=== PATIENT | female | born 1985 | race African-American/Black ===

== ENCOUNTER 2016-10-23 10:01 | Emergency (ER) | payer SELFPAY ==
--- NOTE | 2016-10-23 10:14 | ER Document Report ---
ED Medical Screen (RME) - General Stated Complaint: ABDOMINAL PAIN Notes: 31 yo female c/o nausea, pelvic and abdominal pain since June. hx/o ovarian cysts and fibroid. no fever, no vaginal discharge or pain. no n/v abdomen soft, mild suprapubic tenderness. TRAVEL OUTSIDE OF THE [place] IN LAST 30 DAYS: No - Related Data Allergies/Adverse Reactions: No Known Allergies Allergy (Verified 10/23/16 10:09) Past Medical History Renal/ Medical History: Reports: Hx Ovarian Cysts Malignancy Medical History: Reports: Hx Cervical Cancer Past Surgical History: Reports: Hx Section - Immunizations Immunizations up to date: Yes Hx Diphtheria, Pertussis, Tetanus Vaccination: No
[2016-10-23 10:34] LABS: ABSOLUTE EOSINOPHILS # (AUTO) 0.1 10^3/uL (0.0-0.6); ABSOLUTE LYMPHOCYTES (AUTO) 2.2 10^3/uL (0.5-4.7); ABSOLUTE MONOCYTES (AUTO) 0.3 10^3/uL (0.1-1.4); ABSOLUTE NEUT (AUTO) 6.6 10^3/uL (1.7-8.2); BASOPHILS % (AUTO) 0.4 % (0-2); HEMATOCRIT 36.7 % (36.0-47.0); HGB HCT DIFFERENCE -0.7; LYMPHOCYTES % (AUTO) 23.6 % (13-45); MEAN CORPUSCULAR HEMOGLOBIN 27.8 pg (27.0-33.4); MEAN CORPUSCULAR HGB CONC 32.7 g/dL (32.0-36.0); MEAN CORPUSCULAR VOLUME 85 fl (80-97); MONOCYTES % (AUTO) 3.4 % (3-13); RED BLOOD COUNT 4.31 10^6/uL (3.72-5.28); RED CELL DISTRIBUTION WIDTH 14.3 % (11.5-14.0); SEGMENTED NEUTROPHILS % (AUTO) 71.6 % (42-78); WHITE BLOOD COUNT 9.2 10^3/uL (4.0-10.5)
[2016-10-23 10:37] LABS: APPEARANCE,URINE SLIGHTLY-CLOUDY; BILIRUBIN,URINE NEGATIVE (NEGATIVE); GLUCOSE, URINE NEGATIVE (NEGATIVE); KETONES,URINE NEGATIVE (NEGATIVE); LEUKOCYTE ESTERASE,URINE SMALL (NEGATIVE); NITRITE,URINE NEGATIVE (NEGATIVE); PROTEIN,URINE NEGATIVE (NEGATIVE); URINE SPECIFIC GRAVITY 1.009; UROBILINOGEN,URINE NEGATIVE mg/dL (<2.0)
[2016-10-23 10:57] LABS: BLOOD UREA NITROGEN 5 mg/dL (7-20); CALCIUM 9.3 mg/dL (8.4-10.2); CREATININE RESULT 0.81 mg/dL (0.52-1.25); GLUCOSE 114 mg/dL (75-110)
[2016-10-23 10:58] LABS: ALANINE AMINOTRANSFERASE 53 U/L (9-52); ALBUMIN 3.8 g/dL (3.5-5.0); ALKALINE PHOSPHATASE 90 U/L (38-126); ANION GAP 10 (5-19); ASPARTATE AMINO TRANSFERASE 37 U/L (14-36); BILIRUBIN,TOTAL 0.5 mg/dL (0.2-1.3); CARBON DIOXIDE 25 mmol/L (22-30); CHLORIDE 105 mmol/L (98-107); POTASSIUM 4.2 mmol/L (3.6-5.0); SODIUM 140.3 mmol/L (137-145); TOTAL PROTEIN 7.1 g/dL (6.3-8.2)
--- NOTE | 2016-10-23 10:58 | ER Document Report ---
ED GI/ - General Mode of Arrival: Ambulatory Information source: Patient TRAVEL OUTSIDE OF THE [place] IN LAST 30 DAYS: No - HPI Patient complains to provider of: Other - Bilateral ovarian pain Onset: Other - June 2016 Location: Pelvis Associated symptoms: Other - see above <DICK JAVIER - Last Filed: 10/23/16 21:23> <CHAMP FAYE - Last Filed: 11/08/16 04:35> - General Chief Complaint: Abdominal Pain Stated Complaint: ABDOMINAL PAIN Notes: 31 year old female with history of anemia and ovarian cysts presents to the ED complaining of constant pressure to her pelvis and fatigue that started in June 2016. Patient states that the pressure is coming from her ovaries and that she often experiences pain that radiates back and forth between each ovary. Patient is additionally complaining of a loss of appetite and loss of taste since July 2016. Patient reports that she has been gagging when eating. Patient last saw a physician at [facility] and was diagnosed with a fibroid. Patient seeks health care at [facility] (DICK JAVIER) - Related Data Allergies/Adverse Reactions: No Known Allergies Allergy (Verified 10/23/16 10:09) Past Medical History - General Information source: Patient - Social History Smoking Status: Current Some Day Smoker Chew tobacco use (# tins/day): No Frequency of alcohol use: None Drug Abuse: None Family History: Reviewed & Not Pertinent Patient has suicidal ideation: No Patient has homicidal ideation: No - Past Medical History Cardiac Medical History: Reports: Other - anemia Renal/ Medical History: Reports: Hx Ovarian Cysts. Denies: Hx Peritoneal Dialysis Malignancy Medical History: Reports: Hx Cervical Cancer Past Surgical History: Reports: Hx Section - Immunizations Immunizations up to date: Yes Hx Diphtheria, Pertussis, Tetanus Vaccination: No <DICK JAVIER - Last Filed: 10/23/16 21:23> Review of Systems - Review of Systems Constitutional: See HPI, Weakness EENT: No symptoms reported Cardiovascular: No symptoms reported Respiratory: No symptoms reported Gastrointestinal: See HPI, Poor appetite Genitourinary: No symptoms reported Female Genitourinary: See HPI, Other - pelvic "ovarian" pain Musculoskeletal: No symptoms reported Skin: No symptoms reported Hematologic/Lymphatic: No symptoms reported Neurological/Psychological: See HPI, Sensory change - loss of taste -: Yes All other systems reviewed and negative <DICK JAVIER - Last Filed: 10/23/16 21:23> Physical Exam - General General appearance: Appears well In distress: None - HEENT Head: Normocephalic, Atraumatic Eyes: Normal Extraocular movements intact: Yes Pupils: PERRL - Respiratory Respiratory status: No respiratory distress Breath sounds: Normal - Cardiovascular Rhythm: Regular Heart sounds: Normal auscultation - Abdominal Inspection: Normal Distension: No distension Tenderness: Nontender - Back Back: Normal - Extremities General upper extremity: Normal inspection, Normal ROM General lower extremity: Normal inspection, Normal ROM - Neurological Neuro grossly intact: Yes Cognition: Normal Orientation: AAOx4 Shahnaz Coma Scale Eye Opening: Spontaneous Shahnaz Coma Scale Verbal: Oriented [place] Coma Scale Motor: Obeys Commands [place] Coma Scale Total: 15 Speech: Normal - Psychological Associated symptoms: Normal affect, Normal mood - Skin Skin Temperature: Warm Skin Moisture: Dry Skin Color: Normal <JAVIERDICK - Last Filed: 10/23/16 21:23> Course - Laboratory Result Diagrams: 10/23/16 10:20 10/23/16 10:20 <DICK JAVIER - Last Filed: 10/23/16 21:23> - Laboratory Result Diagrams: 10/23/16 10:20 10/23/16 10:20 <CHAMP FAYE - Last Filed: 11/08/16 04:35> - Re-evaluation Re-evalutation: 10/23/16 12:44 I personally performed the services described in the documentation, reviewed and edited the documentation which was dictated to my scribe in my presence, and it accurately records my words and actions. Patient presents emergency per with a multitude of symptoms been going on for several months. She thinks she should've seen her [employer] physician but didn't says she intermittently gets lower abdominal pain take food doesn't taste right she has a history of anemia and she's basically wanted to get checked out to make sure there wasn't anything abnormal with her labs. She is in no acute distress right now not complaining of any pain or discomfort on examination well -appearing nontoxic stable vitals negative HEENT normal lungs heart and abdomen examinations no acute tenderness guarding rebound rigidity or concerns for injury abdominal pathology. Labs are stable nonacute. She does have a small leukocyte Estrace and do a culture on that told her to call her back that was positive otherwise she is given follow-up with her primary care physician in 2- 3 days OB for further assessment and evaluation Pap she denies any vaginal discharge or history gonorrhea chlamydia and discussed reasons Luisa return sooner (CHAMP FAYE) - Vital Signs Vital signs: Temp Pulse Resp BP Pulse Ox 98.2 F 63 16 140/82 H 100 10/23/16 10:10 10/23/16 12:52 10/23/16 12:52 10/23/16 12:52 10/23/16 12:52 - Laboratory Laboratory results interpreted by me: 10/23/16 10/23/16 10/23/16 10:17 10:20 10:20 RDW 14.3 H BUN 5 L Glucose 114 H AST 37 H ALT 53 H Ur Leukocyte Esterase SMALL H Discharge <DICK JAVIER - Last Filed: 10/23/16 21:23> <CHAMP FAYE - Last Filed: 11/08/16 04:35> - Discharge Clinical Impression: Lower abdominal pain, Decrease in appetite Condition: Stable Disposition: HOME, SELF-CARE Additional Instructions: Abdominal Pain, decreased appetite food doesnt taste right There are many causes of abdominal pain. Pain can mean a serious problem requiring surgery (such as appendicitis). It can also be an innocent problem that goes away on its own (such as a viral infection). Often, time must pass to determine the cause of pain. The physician does not feel that hospitalization is necessary, at present. Things may change within the next 24 hours. Call the doctor or come back for re- examination if any problems occur, such as: (1) Pain that becomes more severe, steady, or becomes concentrated in one specific area. Also, pain that is more severe with movement or coughing. (2) Vomiting that persists or becomes more frequent. (3) Blood in the vomitus, urine, or bowel movements. Blood in the stool may have a tarry or black appearance. (4) Shaking chills or fever greater than 100 degrees F. (5) The abdomen becomes more distended or swollen. (6) Bowel movements cease. (7) Failure to improve as expected. Forms: Return to Work Referrals: [facility] [Provider Group] - Follow up as needed (Call for appointment to be seen in follow-up 2-3 days return for increasing worsening or new symptoms) Scribe Documentation - Scribe Written by Scribe:: Karl Calvert, 10/23/2016 1356 acting as scribe for :: Juan F <DICK JAVIER - Last Filed: 10/23/16 21:23>
[2016-10-23 12:59] VITALS: BP 140/82
== END 2016-10-23 12:59 | disposition home or self-care (01) ==
LOC: ER 10:01
DX: N94.89 Other specified conditions associated with female genital organs and menstrual cycle (principal); R63.0 Anorexia; R53.83 Other fatigue; R53.1 Weakness; R43.8 Other disturbances of smell and taste; F17.200 Nicotine dependence, unspecified, uncomplicated; Z87.42 Personal history of other diseases of the female genital tract; Z86.2 Personal history of diseases of the blood and blood-forming organs and certain disorders involving the immune mechanism; Z85.41 Personal history of malignant neoplasm of cervix uteri
CPT/HCPCS: 36415; 80053; 81001; 84703; 85025; 87086; 99284

== ENCOUNTER 2017-10-21 09:38 | Emergency (ER) | payer OTHER ==
[2017-10-21] MEDS ORDERED: HYDROCODONE/ACETAMINOPHEN 5-325 MG TABLET PO ONE (09:51)
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
== END 2017-10-21 10:45 | disposition home or self-care (01) ==
LOC: ER 09:38
DX: M54.5 Low back pain (principal); M25.532 Pain in left wrist; S10.91XA Abrasion of unspecified part of neck, initial encounter; V47.5XXA Car driver injured in collision with fixed or stationary object in traffic accident, initial encounter; Z85.41 Personal history of malignant neoplasm of cervix uteri
CPT/HCPCS: 72110; 99283

== ENCOUNTER 2017-11-01 23:15 | Emergency (ER) | payer SELFPAY ==
[2017-11-01] MEDS ORDERED: ACETAMINOPHEN 325 MG TABLET PO ONE (23:50)
--- NOTE | 2017-11-01 23:51 | ER Document Report ---
ED General - General Chief Complaint: Abdominal Pain Stated Complaint: ABDOMINAL PAIN Time Seen by Provider: 11/01/17 23:44 Notes: Patient is a 32-year-old female presents with complaint of pain in the right side of her abdomen going into her her right side of her back. She said some sensation of pressure when she urinates. Symptoms have been there since . She says subjective fevers and sore having some body aches today. No vomiting. No diarrhea. No abnormal vaginal discharge or bleeding. No other complaints at this time. TRAVEL OUTSIDE OF THE [place] IN LAST 30 DAYS: No - Related Data Allergies/Adverse Reactions: No Known Allergies Allergy (Verified 10/21/17 09:41) Past Medical History - Social History Smoking Status: Current Every Day Smoker Frequency of alcohol use: None Drug Abuse: None Family History: Reviewed & Not Pertinent Renal/ Medical History: Reports: Hx Ovarian Cysts. Denies: Hx Peritoneal Dialysis Malignancy Medical History: Reports: Hx Cervical Cancer Past Surgical History: Reports: Hx Section - Immunizations Immunizations up to date: Yes Hx Diphtheria, Pertussis, Tetanus Vaccination: No Review of Systems - Review of Systems Notes: My Normal Review Basic REVIEW OF SYSTEMS: CONSTITUTIONAL : Denies fever, chills, or sweats. Denies recent illness. EENT: Denies eye, ear, throat, or mouth pain or symptoms. Denies nasal or sinus congestion. CARDIOVASCULAR: Denies chest pain. RESPIRATORY: Denies cough, cold, or chest congestion. Denies shortness of breath, difficulty breathing, or wheezing. GASTROINTESTINAL: Lower quadrant abdominal pain. Denies nausea, vomiting, or diarrhea. GENITOURINARY: Sensation of pressure when she urinates. FEMALE GENITOURINARY: Denies vaginal bleeding, abnormal or irregular periods. MUSCULOSKELETAL: Right-sided back pain SKIN: Denies rash or skin lesions. NEUROLOGICAL: Denies altered mental status or loss of consciousness. Denies headache. Denies weakness or paralysis or loss of use of either side. Denies problems with gait or speech. Denies sensory or motor loss. ALL OTHER SYSTEMS REVIEWED AND NEGATIVE. Physical Exam - Vital signs Vitals: Temp Pulse Resp BP Pulse Ox 100.2 F 104 H 17 138/83 H 97 11/01/17 23:33 11/01/17 23:33 11/01/17 23:33 11/01/17 23:33 11/01/17 23:33 - Notes Notes: General Appearance: Well nourished, alert, cooperative, no acute distress, mild obvious discomfort. Vitals: reviewed, See vital signs table. Eyes: PERRL, EOMI, Conjuctiva clear Lungs: No wheezing, No rales, No rhonci, No accessory muscle use, good air exchange bilaterally. Heart: Mildly tachycardic rate, Regular rythm, No murmur, no rub Abdomen: Normal BS, soft, No rigidity, mild to moderate suprapubic and right lower quadrant abdominal tenderness palpation, No guarding, no rebound, no abdominal masses, no organomegaly Back: Positive José Miguel sign on the right. Extremities: strength 5/5 in all extremities, good pulses in all extremities, no swelling or tenderness in the extremities, no edema. Skin: warm, dry, appropriate color, no rash Neuro: speech clear, oriented x 3, normal affect, responds appropriately to questions. Course - Re-evaluation Re-evalutation: 11/02/17 04:30 Exact cause the patient's abdominal pain and low-grade fever is not clear. She has a slight leukocytosis and she has slight liver enzyme elevations slight lipase elevation. Her gallbladder ultrasound is negative. Most her pain is in the right lower quadrant and into the right back. Therefore obtain a CT scan which did not show any evidence of appendicitis. I have drawn a hepatic panel. This will take some time to come back. Patient clinically looks well and her abdomen is not acutely surgical appearing on exam. I informed her that I would prescribe her some pain medicine and have her return in 2 days for reevaluation and recheck of her liver enzymes and also to go over the results of her hepatic panel. I informed her that the followup is extremely important to keep and that she really needs to return. Also informed her that she should return to ER immediately if she has recurrent worsening pain, recurrent fevers, vomiting, or feels that she is worsening in any way. Patient agrees with plan and will be discharged home. Dictation of this chart was performed using voice recognition software; therefore, there may be some unintended grammatical errors. - Vital Signs Vital signs: Temp Pulse Resp BP Pulse Ox 100.2 F 104 H 17 138/83 H 97 11/01/17 23:33 11/01/17 23:33 11/01/17 23:33 11/01/17 23:33 11/01/17 23:33 - Laboratory Result Diagrams: 11/02/17 00:45 11/02/17 00:45 Laboratory results interpreted by me: 11/01/17 11/02/17 11/02/17 23:55 00:45 00:45 WBC 12.3 H Hgb 11.7 L RDW 14.3 H Seg Neutrophils % 87.8 H Lymphocytes % 6.5 L Absolute Neutrophils 10.8 H AST 125 H ALT 143 H Lipase Urine Urobilinogen 4.0 H 11/02/17 00:45 WBC Hgb RDW Seg Neutrophils % Lymphocytes % Absolute Neutrophils AST ALT Lipase 352.8 H Urine Urobilinogen Discharge - Discharge Clinical Impression: Liver enzyme elevation Abdominal pain Qualifiers: Abdominal location: right lower quadrant Qualified Code(s): R10.31 - Right lower quadrant pain Condition: Good Disposition: HOME, SELF-CARE Instructions: Oral Narcotic Medication ([facility]) Additional Instructions: The exact cause for your abdominal pain is not 100% clear at this time. Your Ct scan did not show evidence of appendicitis and your gallbladder is normal appearing. You have a small elevation in your liver enzymes. This can be cause by a viral infection that is not serious. This can also be cause by hepatitis. I have sent your blood to be tested for Hepatitis. These results usually take about 24 hours to come back. I will prescribe you some pain medicine. Please eat a very bland diet over the next two days and drink clear liquids. Please return in two days so we can recheck your liver enzymes, reevaluate you, and recheck the results of your Hepatitis testing. no sexual activity until we have cleared that you do not have Hepatitis. Please return to the ER immediately if you have worsening pain, recurrent fevers, vomiting, or feel that you are worsening in any way. Prescriptions: Hydrocodone/Acetaminophen [[place] 5-325 mg Tablet] 1 tab PO Q4 PRN #8 tablet PRN Reason: For [facility] Pain Forms: Return to Work
[2017-11-02] MEDS ORDERED: ONDANSETRON HCL INJ/PF 4 MG/2 ML SDV IV ONE (00:01)
[2017-11-02] MEDS ORDERED: ONDANSETRON 4 MG TAB.RAPDIS PO ONE (00:02)
[2017-11-02 00:21] LABS: APPEARANCE,URINE CLEAR; BILIRUBIN,URINE NEGATIVE (NEGATIVE); COLOR,URINE YELLOW; GLUCOSE, URINE NEGATIVE (NEGATIVE); KETONES,URINE NEGATIVE (NEGATIVE); LEUKOCYTE ESTERASE,URINE NEGATIVE (NEGATIVE); NITRITE,URINE NEGATIVE (NEGATIVE); PROTEIN,URINE NEGATIVE (NEGATIVE)
[2017-11-02 01:02] LABS: ABSOLUTE BASOPHILS # (AUTO) 0.1 10^3/uL (0.0-0.2); ABSOLUTE EOSINOPHILS # (AUTO) 0.1 10^3/uL (0.0-0.6); ABSOLUTE LYMPHOCYTES (AUTO) 0.8 10^3/uL (0.5-4.7); ABSOLUTE MONOCYTES (AUTO) 0.5 10^3/uL (0.1-1.4); ABSOLUTE NEUT (AUTO) 10.8 10^3/uL (1.7-8.2); BASOPHILS % (AUTO) 0.5 % (0-2); EOSINOPHILS % (AUTO) 1.1 % (0-6); HEMATOCRIT 36.4 % (36.0-47.0); HEMOGLOBIN 11.7 g/dL (12.0-15.5); LYMPHOCYTES % (AUTO) 6.5 % (13-45); MEAN CORPUSCULAR HEMOGLOBIN 27.4 pg (27.0-33.4); MEAN CORPUSCULAR HGB CONC 32.3 g/dL (32.0-36.0); MEAN CORPUSCULAR VOLUME 85 fl (80-97); MONOCYTES % (AUTO) 4.1 % (3-13); PLATELET COUNT 329 10^3/uL (150-450); RED BLOOD COUNT 4.29 10^6/uL (3.72-5.28); RED CELL DISTRIBUTION WIDTH 14.3 % (11.5-14.0); SEGMENTED NEUTROPHILS % (AUTO) 87.8 % (42-78); TOTAL CELLS COUNTED % (AUTO) 100 %; WHITE BLOOD COUNT 12.3 10^3/uL (4.0-10.5)
[2017-11-02] MEDS ORDERED: NORMAL SALINE 1000 ML 1,000 ML IV ONE (01:04)
[2017-11-02 01:41] LABS: ALANINE AMINOTRANSFERASE 143 U/L (9-52); ALBUMIN 3.9 g/dL (3.5-5.0); ALKALINE PHOSPHATASE 99 U/L (38-126); ANION GAP 8 (5-19); ASPARTATE AMINO TRANSFERASE 125 U/L (14-36); BILIRUBIN,DIRECT 0.3 mg/dL (0.0-0.4); BILIRUBIN,TOTAL 0.3 mg/dL (0.2-1.3); BLOOD UREA NITROGEN 9 mg/dL (7-20); CALCIUM 9.4 mg/dL (8.4-10.2); CARBON DIOXIDE 26 mmol/L (22-30); CHLORIDE 105 mmol/L (98-107); GLUCOSE 103 mg/dL (75-110); POTASSIUM 4.5 mmol/L (3.6-5.0); SODIUM 138.9 mmol/L (137-145); TOTAL PROTEIN 7.1 g/dL (6.3-8.2)
[2017-11-02] MEDS ORDERED: FENTANYL CITRATE INJ/PF 100 MCG/2 ML AMPUL IV ONE ×2 (01:48→02:53)
--- NOTE | 2017-11-02 02:37 | RADIOLOGY REPORT (SQ) ---
EXAM DESCRIPTION: U/S ABDOMEN LTD W/DOPPLER CLINICAL HISTORY: right sided abdominal pain, fever COMPARISON: None. TECHNIQUE: Real-time sonographic images of the right upper abdomen were obtained using a curved multihertz transducer. FINDINGS: Pancreas: The visualized portions of the pancreas are unremarkable. Vascular: The visualized portions of the aorta and IVC are unremarkable. Liver: The liver has normal contour and echogenicity. Hepatopedal flow in the portal vein. The common bile duct measures 0.4 cm. Gallbladder: The gallbladder has a normal appearance. No gallstones identified. No wall thickening or pericholecystic fluid. Right Kidney: The right kidney measures 9.3 cm in length. No hydronephrosis, solid renal mass, or shadowing calculi. IMPRESSION: 1. No abnormalities in the right upper abdomen identified.
--- NOTE | 2017-11-02 04:15 | RADIOLOGY REPORT (SQ) ---
EXAM DESCRIPTION: CT ABDOMEN AND PELVIS WITH CONTRAST CLINICAL HISTORY: RLQ abdominal pain COMPARISON: 07/31/2011 TECHNIQUE: CT of the abdomen and pelvis performed following IV administration of 89 mL of Isovue-[id number]. DLP: 1131.85 mGycm FINDINGS: Lung Bases: The visualized lung bases are clear. Bones: No destructive bone lesions identified. Abdomen: Liver: The liver has normal size and density. No intrahepatic mass or biliary dilatation. Gallbladder: No calcified gallstones. Spleen, Pancreas, and Adrenal Glands: The spleen, pancreas, and adrenal glands are unremarkable. Kidneys: The kidneys have normal size and contour without evidence of solid mass or hydronephrosis. Bosniak class I left renal cyst. Vasculature: The aorta and IVC have normal caliber and position. The portal vein is patent. The proximal visceral and renal arteries are patent. Stomach: The stomach and duodenum have normal course. Other: No free intraperitoneal air. No free fluid or lymphadenopathy. Pelvis: Bladder: Urinary bladder is unremarkable. Bowel: No dilated loops of large or small bowel. Appendix: Normal appendix. Pelvis: 3.9 cm left ovarian cyst is almost certainly benign. No follow-up imaging recommended. IMPRESSION: 1. No acute inflammatory or obstructive process identified. This exam was performed according to our departmental dose-optimization program, which includes automated exposure control, adjustment of the mA and/or kV according to patient size and/or use of iterative reconstruction technique.
[2017-11-02] MEDS ORDERED: HYDROCODONE/ACETAMINOPHEN 5-325 MG (6 TAB/ER DISP) PO PRN (04:28)
[2017-11-02 04:42] VITALS: BP 115/65
[2017-11-03 13:38] LABS: HEPATITIS A AB IGM Negative (Negative); HEPATITIS B CORE AB IGM Negative (Negative); HEPATITS B SURFACE ANTIGEN Negative (Negative)
[2017-11-03 14:01] LABS: HEPATITIS C VIRUS ANTIBODY <0.1 s/co ratio (0.0-0.9)
== END 2017-11-02 05:04 | disposition home or self-care (01) ==
LOC: ER 23:15
DX: R10.31 Right lower quadrant pain (principal); R74.8 Abnormal levels of other serum enzymes; M54.9 Dorsalgia, unspecified; R50.9 Fever, unspecified; R00.0 Tachycardia, unspecified; R30.0 Dysuria; F17.200 Nicotine dependence, unspecified, uncomplicated; Z87.42 Personal history of other diseases of the female genital tract; Z85.41 Personal history of malignant neoplasm of cervix uteri
CPT/HCPCS: 96376; 99284; 96361; 96374; 96375; 36415; 83690; 85025; 81025; 80053; 81001; 80074; 76705; 93976; 74177; S0119; J3010; J7030